=== PATIENT | female | born 1995 | race African-American/Black ===

== ENCOUNTER 2020-05-16 07:35 | Emergency (ER) | payer SELFPAY ==
[2020-05-16] MEDS ORDERED: Bicillin LA 1.2 MILLION UNITS/2 ML SYRINGE ONE (08:05)
== END 2020-05-16 08:15 | disposition home or self-care (01) ==
LOC: CSHERS 07:35
DX: J02.9 Acute pharyngitis, unspecified (principal); F17.210 Nicotine dependence, cigarettes, uncomplicated
CPT/HCPCS: 96372; 99282; J0561

== ENCOUNTER 2020-05-26 09:52 | Emergency (ER) | payer SELFPAY ==
[2020-05-26 10:38] LABS: Hemoglobin 13.4 g/dL (12.0-15.5); Mean Corpuscular HGB CONC 31.7 g/dL (32.0-36.0); Mean Corpuscular Hemoglobin 26.3 pg (27.0-33.0); Mean Corpuscular Volume 83.1 fl (81.6-98.3); Mean Platelet Volume 8.8 fl (7.4-10.4); Platelet Count 433 10x3/uL (150-450); RBC Distribution Width 13.9 % (11.5-14.5); Red Blood Cell (RBC) Count 5.09 10x6/uL (3.90-5.03); White Blood Cell (WBC) Count 11.9 10x3/uL (3.5-10.5)
[2020-05-26] MEDS ORDERED: Lorazepam 2 MG/ML VIAL ONE (10:47)
[2020-05-26] MEDS ORDERED: Aspirin Chewable 81 MG TAB ONE (10:49)
[2020-05-26 10:55] LABS: BHCG - Serum Negative (NEGATIVE); Pregs Control Background? CLEAR/WHITE (CLR/WHITE); Pregs Control Bar Appear? YES (CONTROL BAR)
[2020-05-26 11:02] LABS: ALT (SGPT) 28 U/L (8-55); AST (SGOT) 29 U/L (5-34); Albumin 4.4 g/dL (3.5-5.0); Alkaline Phosphatase 99 U/L (40-110); Anion Gap 13 mmol/L (10-20); BUN (Urea Nitrogen) 13 mg/dL (7.0-18.7); Bilirubin, Total 0.3 mg/dL (0.2-1.2); CK (CPK) 114 U/L (29-168); Calc. Creatinine Clearance 0 mL/min (70-130); Calcium 9.4 mg/dL (7.8-10.44); Carbon Dioxide 24 mmol/L (22-29); Chloride 107 mmol/L (98-107); Globulin 4.1 g/dL (2.4-3.5); Glucose 101 mg/dL (70-105); Potassium 4.2 mmol/L (3.5-5.1); Protein, Total 8.5 g/dL (6.0-8.3); Sodium 140 mmol/L (136-145)
[2020-05-26 11:22] LABS: Thyroid Stimulating Hormone 0.5768 uIU/mL (0.35-4.94)
[2020-05-26 11:51] LABS: Band 1 % (5-11); Eosinophils 2 % (0-10); Lymphocytes 33 % (21-51); Monocytes 5 % (0-10); Reactive Lymphocytes 15 % (0-10)
[2020-05-26 11:52] LABS: Neutrophil 44 % (42-75)
[2020-05-26 11:53] LABS: Platelet Morphology Comment Appears Adequate
[2020-05-26 11:54] LABS: Giant Platelets SLIGHT
[2020-05-26] MEDS ORDERED: Ondansetron PF 4 MG/2 ML Vial ONE (12:25)
[2020-05-26] MEDS ORDERED: Morphine 4 MG/ML VIAL ONE (12:25)
[2020-05-26 15:08] LABS: MDiff Complete? YES
== END 2020-05-26 13:50 | disposition home or self-care (01) ==
LOC: CSHERS 09:52
DX: R07.89 Other chest pain (principal); F17.210 Nicotine dependence, cigarettes, uncomplicated
CPT/HCPCS: 71045; 71275; 80053; 82550; 83605; 83735; 84443; 84484; 84703; 85025; 85379; 93005; 96374; 96375; J2060; J2270; J2405

== ENCOUNTER 2021-02-21 20:39 | Emergency (ER) | payer SELFPAY ==
[2021-02-21] MEDS ORDERED: Ketorolac Tromethamine 30 MG/ML VIAL ONE (21:29)
== END 2021-02-21 21:41 | disposition home or self-care (01) ==
LOC: CSHERS 20:39
DX: S61.101A Unspecified open wound of right thumb with damage to nail, initial encounter (principal); F17.210 Nicotine dependence, cigarettes, uncomplicated; W23.1XXA Caught, crushed, jammed, or pinched between stationary objects, initial encounter
CPT/HCPCS: 96372; J1885

== ENCOUNTER 2021-09-01 17:55 | Emergency (ER) | payer SELFPAY | END 2021-09-01 18:29 | disposition home or self-care (01) | LOC: CSHERS 17:55 | DX: O99.511 Diseases of the respiratory system complicating pregnancy, first trimester (principal); K02.9 Dental caries, unspecified; O99.331 Smoking (tobacco) complicating pregnancy, first trimester; F17.210 Nicotine dependence, cigarettes, uncomplicated; Z3A.08 8 weeks gestation of pregnancy | CPT/HCPCS: 99282 ==

== ENCOUNTER 2021-10-11 00:19 | Emergency (ER) | payer SELFPAY ==
[2021-10-11] MEDS ORDERED: Acetaminophen 500 MG TAB ONE (00:39)
[2021-10-11] MEDS ORDERED: Dexamethasone 10 MG/ML VIAL ONE (00:39)
== END 2021-10-11 01:08 | disposition home or self-care (01) ==
LOC: CSHERS 00:19
DX: J02.9 Acute pharyngitis, unspecified (principal); Z20.822 Contact with and (suspected) exposure to COVID-19; F17.210 Nicotine dependence, cigarettes, uncomplicated
CPT/HCPCS: 87081; 87430; 99283; J1100; U0003; U0005

== ENCOUNTER 2021-10-13 18:44 | Emergency (ER) | payer SELFPAY ==
[2021-10-13] MEDS ORDERED: Dexamethasone 10 MG/ML VIAL ONE (19:40)
[2021-10-13] MEDS ORDERED: Fentanyl 100 MCG/2 ML VIAL ONE (19:41)
[2021-10-13 19:52] LABS: Hemoglobin 13.3 g/dL (12.0-15.5); Mean Corpuscular HGB CONC 34.7 g/dL (32.0-36.0); Mean Corpuscular Hemoglobin 28.5 pg (27.0-33.0); Mean Corpuscular Volume 82.2 fl (81.6-98.3); Mean Platelet Volume 8.6 fl (7.4-10.4); Platelet Count 461 10x3/uL (150-450); RBC Distribution Width 12.6 % (11.5-14.5); Red Blood Cell (RBC) Count 4.66 10x6/uL (3.90-5.03); White Blood Cell (WBC) Count 21.3 10x3/uL (3.5-10.5)
[2021-10-13] MEDS ORDERED: Ampicillin/Sulbactam 3 GM in Sodium Chloride 0.9% 100 ML IVPB SCH (20:00)
[2021-10-13] MEDS ORDERED: HYDROcodone/Acetaminophen 5/325 mg Tablet ONE (20:36)
[2021-10-13 20:37] LABS: MDiff Complete? YES; Platelet Morphology Comment Appears Increased
[2021-10-13 20:40] LABS: Band 2 % (5-11); Lymphocytes 15 % (21-51); Metamyelocyte 1 % (0-0); Monocytes 10 % (0-10); Neutrophil 72 % (42-75)
== END 2021-10-13 20:56 | disposition home or self-care (01) ==
LOC: CSHERS 18:44
DX: O99.511 Diseases of the respiratory system complicating pregnancy, first trimester (principal); J36 Peritonsillar abscess; O99.331 Smoking (tobacco) complicating pregnancy, first trimester; F17.210 Nicotine dependence, cigarettes, uncomplicated; Z3A.13 13 weeks gestation of pregnancy
CPT/HCPCS: 85025; 96365; 96367; 96375; J0295; J1100; J3010; J3490

== ENCOUNTER 2024-03-05 19:06 | Emergency (ER) | payer BC, SELFPAY ==
[2024-03-05] MEDS ORDERED: Ibuprofen 200 MG TAB ONE (19:30)
== END 2024-03-05 19:46 | disposition home or self-care (01) ==
LOC: CSHERS 19:06
DX: J98.8 Other specified respiratory disorders (principal); B97.89 Other viral agents as the cause of diseases classified elsewhere; F17.210 Nicotine dependence, cigarettes, uncomplicated
CPT/HCPCS: 99283

== ENCOUNTER 2025-01-23 14:17 | Emergency (ER) | payer SELFPAY ==
[2025-01-23] MEDS ORDERED: Ketorolac Tromethamine 30 MG (1 mL) VIAL ONE (14:49)
== END 2025-01-23 14:59 | disposition home or self-care (01) ==
LOC: CSHERS 14:17
DX: K03.81 Cracked tooth (principal); K04.7 Periapical abscess without sinus; F17.210 Nicotine dependence, cigarettes, uncomplicated
CPT/HCPCS: 96372; 99282; J1885